=== PATIENT | female | born 1930 | race Caucasian/White ===

== ENCOUNTER 2016-12-12 12:08 | Inpatient (IN) | payer MEDICARE, OTHER ==
--- NOTE | ~2016-12-12 | OP ---
Record Of Operation [facility] [address] [place]. [address] NAME: KO PRICE : 30 STATUS : ADM IN PAT#: [id number] AGE: 85 ADM/REG DATE : 12/12/16 MR#: [id number] REPORT SERV DATE: 12/12/16 DICTATED BY: Shari GAMBINO DATE: 12/12/16 REPORT STATUS : Draft TRANSCRIBED BY: MODL DATE: 12/12/16 DATE OF PROCEDURE: 12/12/2016 PREOPERATIVE DIAGNOSES: Obstructing left proximal ureteral stone with mild acute kidney injury and probable urinary tract infection. POSTOPERATIVE DIAGNOSES: Obstructing left proximal ureteral stone with mild acute kidney injury and probable urinary tract infection. PROCEDURE: Cystoscopy, left retrograde pyelography, stone manipulation, double-J stent placement, placement of Apple catheter. SURGEON: Shari Gambino M.D. ANESTHESIA: General with LMA. COMPLICATIONS: None. DRAINS: 1. 7-[place] x 24 cm Contour double-J stent. 2. 18-[place] Apple catheter. BRIEF HISTORY: Ms. Price is an 85-year-old white female, who was doing well until earlier today when she began to develop nonspecific abdominal pain. She was evaluated in the ER and found to have a likely urinary tract infection with early sepsis and a 5-mm obstructing proximal left ureteral stone. I was asked to see her and arrange for urgent stent placement. I discussed with the patient who had been narcotized and her son. The plan would be to drain her kidney and treat her stone on a delayed basis. There were no unanswered questions. DESCRIPTION OF PROCEDURE: Under excellent general anesthesia, the patient was prepped and draped in a standard lithotomy position. Cystoscopy was performed with a 30-degree lens, revealed a mildly stenotic urethra. Inspection of the bladder revealed no tumors, stones, or foreign bodies and [id number] cystocele was noted. An 8-[place] cone-tipped catheter was used to perform a left retrograde pyelogram and it was noted that her left orifice was somewhat laterally deviated. This confirmed a filling defect in the proximal ureter. I inserted an angled glidewire through a 5-[place] open-ended catheter. Urine was obtained, but it was not grossly purulent. It appeared that the obstruction was more in the upper pole than the lower pole and the stone now appeared to be more in the collecting system. At any rate, I manipulated the wire back into the collecting system and into the upper pole. I took a 7-[place] x 24 cm Contour double-J stent and directed it up the ureter and into the kidney with attempts to make to make it coiled in the upper pole if that appeared more dilated in the lower pole. The patient tolerated the procedure well and I placed an 18-[place] Apple catheter per urethra. I planned to let the patient go back to the floor. Further medical management by the hospitalist in . We will check a KUB on her tomorrow and review it next week with plans for either ureteroscopy at Record Of Operation [address] [place]. [address] NAME: KO PRICE : 30 STATUS : ADM IN PAT#: [id number] AGE: 85 ADM/REG DATE : 12/12/16 MR#: [id number] REPORT SERV DATE: 12/12/16 DICTATED BY: Shari GAMBINO DATE: 12/12/16 REPORT STATUS : Draft TRANSCRIBED BY: MODKahlil DATE: 12/12/16 some point or ESWL. SHAZIA/REMBERTO Shari Gambino M.D. / [id number] CC: Anna Garcia M.D.
--- NOTE | ~2016-12-12 | HP ---
History And Physical [place] [address] [place]. [address] NAME: KO PRICE : 30 STATUS : ADM IN [facility]#: [id number] AGE: 85 ADM/REG DATE : 12/12/16 MR#: [id number] REPORT SERV DATE: 12/12/16 DICTATED BY: KEVON CAIN DATE: 12/12/16 REPORT STATUS : Draft TRANSCRIBED BY: REMBERTO DATE: 12/12/16 DATE OF ADMISSION: 12/12/2016 CHIEF COMPLAINT: Left-sided abdominal pain and CVA pain. HISTORY OF PRESENT ILLNESS: The patient is an 85-year-old white female, who lives independently. Her sons are present at bedside today. She woke up and had sudden onset of left CVA, left-sided abdominal pain. She was writhing in pain, brought to the hospital by her son. She has not had recent fever. Yesterday she was normal. She has not had a cough. She has not had any nausea, vomiting, or diarrhea until today, she was nauseated and had some retching but really only mucus came up. She has not noticed any dysuria. She has never had a kidney stone in the past. She has not had any chest pain. She does admit to get really short of breath. She does have a history of possible pulmonary fibrosis which was found on a chest x-ray. She has seen Dr. Rodriguez in the past and had some PFTs but she does not wear oxygen. PAST MEDICAL HISTORY: 1. Osteoarthritis. 2. Hypertension. 3. Hard of hearing. 4. Right breast cancer with mastectomy. 5. Colon polyps. 6. Hemorrhoids. 7. Diverticulosis. 8. Incomplete right bundle-branch block. 9. ITP. 10.Migraines. 11.Schatzki ring. 12.Probable pulmonary fibrosis. SOCIAL HISTORY: She is a nonsmoker, nondrinker. She quit smoking in the . She lives independently. ALLERGIES: DEMEROL. FAMILY HISTORY: Positive for CAD and Parkinson's in her father; a CVA and CHF in her mother; and her sister had breast cancer. SURGICAL HISTORY: 1. She has had a right total hip arthroplasty. 2. Hysterectomy. 3. Right mastectomy. REVIEW OF SYSTEMS: Full 10-point review of systems obtained. Pertinent positives already mentioned in the HPI. History And Physical [address] [place]. [address] NAME: KO PRICE : 30 STATUS : ADM IN PAT#: [id number] AGE: 85 ADM/REG DATE : 12/12/16 MR#: [id number] REPORT SERV DATE: 12/12/16 DICTATED BY: KEVON CAIN DATE: 12/12/16 REPORT STATUS : Draft TRANSCRIBED BY: REMBERTO DATE: 12/12/16 PHYSICAL EXAMINATION: VITAL SIGNS: Current vital signs are as follows: Blood pressure 142/70, pulse 95, sats 96% on 2 L, respiratory rate 21, and temperature was 98.2. GENERAL: A well-developed white female. She was really moving about in the bed and could not sit still. HEENT: Normocephalic, atraumatic. Throat is clear. NECK: Supple. HEART: Tachycardic but no murmurs, rubs, or gallops. LUNGS: She has some fine crackles at the bases. ABDOMEN: Soft, nondistended. EXTREMITIES: Warm and dry. SKIN: Intact without obvious rash or lesion. LABORATORY AND X-RAY: EKG shows sinus tach with a right bundle-branch block. CBC: H and H are 13.6 and 42, white count 14.7, and platelets are 282. Coags are pending. Chest x-ray shows this sort of patchy interstitial opacities in the bases which is consistent with her previous chest x-ray. Lactate is 3.4. CT of the abdomen and pelvis shows 5 mm proximal left ureteral stone with moderate left-sided hydro. Sodium is 140, potassium 3.3, chloride 104, CO2 of 29, BUN and creatinine 14 and 1.12. Glucose 184. LFTs are normal. Alkaline phosphatase 126, lipase is 82. Baseline creatinine is closer to 0.7. Procalcitonin is 0.42. Urinalysis shows moderate leukocyte esterase, positive nitrite, 10 whites, and 4 reds. BNP is 87. ASSESSMENT/PLAN: 1. Obstructive uropathy with left-sided obstructing ureteral stone with associated moderate hydro and probable UTI with ongoing SIRS/sepsis. We will admit to a tele bed as she currently has a good blood pressure. We will hydrate her aggressively. Provide IV cefepime. We will culture her blood and urine. Keep her n.p.o. I have contacted Urology and spoken with Dr. Hopkins, one of his associates who will see the patient in consultation today and potentially take her to the OR if needed. We will monitor her vital signs closely and place her on a tele bed. 2. Mild acute kidney injury again, hydrate. Treat underlying urinary tract infection, relieve urinary obstruction. 3. Mild hypoxemia, likely secondary to underlying lung disease or interstitial lung disease or pulmonary fibrosis which has been present for some time. I do not think she has pneumonia. She has no cough. No sputum and it does not correlate with her presentation today. The findings on chest x-ray appear to be old. We will provide O2 as needed. 4. History of hypertension. Holding antihypertensives. 5. Hard of hearing. 6. Osteoarthritis. 7. Deep venous thrombosis prophylaxis. We will start Lovenox tomorrow. 8. Disposition pending above. MEI/REMBERTO History And Physical [address] [address] NAME: KO PRICE : 30 STATUS : ADM IN [facility]#: [id number] AGE: 85 ADM/REG DATE : 12/12/16 MR#: [id number] REPORT SERV DATE: 12/12/16 DICTATED BY: KEOVN CAIN DATE: 12/12/16 REPORT STATUS : Draft TRANSCRIBED BY: REMBERTO DATE: 12/12/16 Kevon Cain M.D. / [id number] CC: Agustín Landeros M.D.
--- NOTE | ~2016-12-12 | DS ---
Discharge Summary [place] [address] [facility] [place]. [address] NAME: KO PRICE : 30 STATUS : DIS IN PAT#: [id number] AGE: 85 ADM/REG DATE : 12/12/16 MR#: [id number] REPORT SERV DATE: 12/16/16 DICTATED BY: KIMBERLI REZA DATE: 12/15/16 REPORT STATUS : Draft TRANSCRIBED BY: MODL DATE: 12/15/16 ADMISSION DATE: 12/12/2016 DISCHARGE DATE: 12/15/2016 CONSULTING PHYSICIAN: Dr. Ramirez for Urology. FINAL DIAGNOSES: 1. Status post stent placement for left ureteral stone and left hydronephrosis. 2. Urinary tract infection Klebsiella. 3. Escherichia coli bacteremia. 4. Interstitial lung disease. 5. Hypertension. 6. Hypokalemia, improved. 7. Diarrhea, improved. 8. History of right mastectomy for breast cancer. DIAGNOSTIC EXAMS: CAT scan of the abdomen showing 0.5 mm proximal left ureteral stone with moderate left-sided hydronephrosis. Right upper pole kidney stone measuring 5 mm and 4 mm. Right mid pole kidney stone measured 15 mm. Right lower pole kidney stone measured 3 mm. Large benign appearing right kidney cysts. No bowel obstruction or bowel wall inflammation. There are numerous colonic diverticula without acute diverticulitis. Chest x-ray increased bibasilar pattern suggests dependent edema, typical infection, could have . KUB, interval placement of left-sided double-J ureteral stent. Prior proximal left not clearly identified on this exam. Continued right- sided nephrolith. HOSPITAL COURSE: Please refer to the H and P done by Dr. Cain dated on 12/12/2016. Briefly, this is an 85-year-old female, who comes in for left-sided pain. The patient lives alone, woke up with sudden onset of left CVA and left lower quadrant abdominal pain, brought to the emergency room and was found to have hypokalemia, relative hypotension. Further workup revealed that the patient has left ureteral stone with left hydronephrosis. We got Urology involved and they placed a double-J stent and the patient felt better. She was started on broad-spectrum antibiotics and that was narrowed down to Duricef when we got cultures and sensitivity back. Meanwhile, the patient started having some diarrhea. We checked the stool and it seems to be firm rather than diarrhea so it was a just transient, and we can see the white count coming down. Our suspicion for C. diff is low. The patient expressed her wishes to go home. There was no vomiting, no abdominal pain anymore, and we got clearance from Urology for discharge, so we will be discharging the patient with the above diagnosis. She will be on the following medications; Norvasc 10 mg a day, tramadol 50 mg twice a day, potassium 10 mEq a day, Lasix 40 mg a day, losartan 100 mg a day, Excedrin p.r.n., and I will give her a prescription for Duricef 1 g p.o. b.i.d. for 11 more days. She said that she gets this difficulty in swallowing pills, so they can give it to her suspension. This has been explained to the patient in front of the son. TIME SPENT: 35 minutes. Discharge Summary [address] [address] NAME: KO PRICE : 30 STATUS : DIS IN PAT#: [id number] AGE: 85 ADM/REG DATE : 12/12/16 MR#: [id number] REPORT SERV DATE: 12/16/16 DICTATED BY: KIMBERLI REZA. DATE: 12/15/16 REPORT STATUS : Draft TRANSCRIBED BY: REMBERTO DATE: 12/15/16 ANNAMARIE/REMBERTO Kimberli Reza M.D. / [id number] CC: Anna Garcia M.D.
--- NOTE | ~2016-12-12 | CN ---
Consultation Report [facility] [address] [facility] [place]. [address] NAME: KO PRICE : 30 STATUS : ADM IN PAT#: [id number] AGE: 85 ADM/REG DATE : 12/12/16 MR#: [id number] REPORT SERV DATE: 12/12/16 DICTATED BY: Shari GAMBINO DATE: 12/12/16 REPORT STATUS : Draft TRANSCRIBED BY: MODKahlil DATE: 12/12/16 CONSULTATION DATE OF CONSULTATION: 12/12/2016 CHIEF COMPLAINT: Left proximal ureteral stone with possible UTI with or without sepsis. HISTORY OF PRESENT ILLNESS: Ms. Price is an 85-year-old, white female in her usual state of reasonably good health until earlier today when she developed abdominal pain, fairly nonspecific with weakness and fever. She was brought to the hospital by her family, ultimately found to have a 5 mm left proximal ureteral stone with obstruction. She has been [place] [address], mild acute kidney injury with a creatinine of 1.12. Her urine was positive for nitrites, red cells, and white cells. PAST MEDICAL HISTORY: 1. Hypertension. 2. Possible pulmonary fibrosis. 3. Urolithiasis. PAST SURGICAL HISTORY: Hysterectomy. HOME MEDICATIONS: Amlodipine 10 mg daily, daily aspirin, Lasix 40 mg daily, losartan 100 mg daily, potassium supplement, tramadol 50 daily. ALLERGIES: PROPOXYPHENE CAUSES A HEADACHE. FAMILY HISTORY: Negative for urologic disease. SOCIAL HISTORY: The patient lives at home alone. REVIEW OF SYSTEMS: Full 12-point review of systems negative except as noted above, gleaned from patient and family. PHYSICAL EXAMINATION: GENERAL: Uncomfortable appearing 85-year-old white female, somewhat confused. She appears to be uncomfortable, has been narcotized. Normocephalic, atraumatic, no respiratory distress. HEART: Regular rate rhythm. ABDOMEN: Protuberant, nontender. No CVA tenderness. : Normal external genitalia. Normal-appearing urethra. EXTREMITIES: No peripheral edema noted. PERTINENT LABORATORIES: Creatinine 1.12. White count [address], with a left shift. Urinalysis Consultation Report [facility] [address] [facility] [place]. [address] NAME: KO PRICE : 30 STATUS : ADM IN PAT#: [id number] AGE: 85 ADM/REG DATE : 12/12/16 MR#: [id number] REPORT SERV DATE: 12/12/16 DICTATED BY: Shari GAMBINO DATE: 12/12/16 REPORT STATUS : Draft TRANSCRIBED BY: REMBERTO DATE: 12/12/16 inflammatory as noted above. CT scan reviewed shows bilateral stones with an obstructing left proximal ureteral stone. IMPRESSION: 1. Obstructing left ureteral stone. 2. Probable urinary tract infection with or without early sepsis. PLAN: 1. The patient is to be admitted by the hospitalist which has already been taken care of. 2. I will arrange for urgent stent placement today. 3. As I explained to the patient and her family, we will plan delayed stone therapy several weeks down the road after her current situation is clear. 4. Urine was sent and blood cultures have been sent. SHAZIA/REMBERTO Shari Gambino M.D. / [id number] CC: Anna Garcia M.D.
[2016-12-12 10:47] LABS: BASOPHILS 0.1 %; BASOPHILS ABSOLUTE 0.01 10/3/uL (0.0-0.16); EOSINOPHILS 0.1 %; EOSINOPHILS ABSOLUTE 0.01 10/3/uL (0.0-0.53); ER CBC TAT 0 Hrs 05 Mins; HEMATOCRIT 42.3 % (36.0-48.0); HEMOGLOBIN 13.6 g/dL (12.0-16.0); IMMATURE GRANULOCYTES 0.3 %; IMMATURE GRANULOCYTES ABSOLUTE 0.04 10/3/uL (0.0-0.11); LYMPHOCYTES 3.5 %; LYMPHOCYTES ABSOLUTE 0.52 10/3/uL (0.67-4.30); MEAN CORPUS HGB CONC 32.2 g/dL (32.0-36.0); MEAN CORPUSCULAR HEMOGLOB 27.2 pg (26.0-34.0); MEAN CORPUSCULAR VOLUME 84.6 fL (80-100); MEAN PLATELET VOLUME 9.9 fL (9.2-13.0); MONOCYTES 1.2 %; MONOCYTES ABSOLUTE 0.17 10/3/uL (0.21-1.20); NEUTROPHILS 94.8 %; NEUTROPHILS ABSOLUTE 13.92 10/3/uL (2.02-8.40); PLATELET COUNT 282 10/3/uL (150-400); RBC DISTRIBUTION WIDTH 13.8 % (12.0-16.0); WHITE BLOOD CELLS 14.7 10/3/uL (4.5-10.5)
[2016-12-12 10:48] LABS: MANUAL DIFF NO %
[2016-12-12 11:05] LABS: A/G RATIO 0.9 (0.7-1.9); ALBUMIN 3.6 G/DL (3.5-5.0); BUN (BLOOD UREA NITROGEN) 14 MG/DL (6-23); CALCIUM, SERUM 9.1 MG/DL (8.5-10.4); CHLORIDE, SERUM 104 MMOL/L (96-112); CO2 (CARBON DIOXIDE) 29 MMOL/L (24-34); CREATININE 1.12 MG/DL (0.55-1.02); GFR AFRICAN AMERICAN 52 ML/MIN (>=60); GFR NON AFRICAN AMERICAN 45 ML/MIN (>=60); GLOBULIN 4.1 G/DL (2.5-4.1); POTASSIUM, SERUM 3.3 MMOL/L (3.5-5.3); SGOT(AST) 12 U/L (5-40); SGPT(ALT) 13 U/L (5-65); SODIUM, SERUM 140 MMOL/L (135-148); TOTAL BILIRUBIN 0.7 MG/DL (0-1.2); TOTAL PROTEIN 7.7 G/DL (6.0-8.5)
[2016-12-12 11:06] LABS: ALKALINE PHOSPHATASE 126 U/L (45-117); GLUCOSE, SERUM 184 MG/DL (60-99)
[2016-12-12 11:08] LABS: LACTATE 3.4 MMOL/L (0.3-2.4)
[2016-12-12 11:40] LABS: PROCALCITONIN 0.42 ng/mL (<0.5)
[2016-12-12 11:41] LABS: ASCORBIC ACID (UR NOT ORDER) NEG (NEG); BILIRUBIN, URINE NEGATIVE (NEG); ER URINALYSIS TAT 0 Hrs 11 Mins; KETONE, URINE NEGATIVE (NEG); LEUKOCYTE ESTERASE(NOT OR MOD (NEG); NITRITE (URINE) POS (NEG); WBC (NOT ORDERED) (RFLEX) 10 (0-5)
[~2016-12-12 12:08] MED LIST: B COMPLETE PO; COZAAR100 MG PO; KLOR-CON 1010 MEQ PO; L20 PO; NORV10 PO; PEP10 PO; ULTRAM50 PO; VIT B; VITAMIN D31000 UNIT PO
[2016-12-12] MEDS ORDERED: L40 PO (12:48)
[2016-12-12] MEDS ORDERED: ULTRAM50 PO (12:48)
[2016-12-12] MEDS ORDERED: COZAAR100 MG PO (12:48)
[2016-12-12] MEDS ORDERED: KLOR-CON 1010 MEQ PO (12:48)
[2016-12-12] MEDS ORDERED: NORV10 PO (12:48)
[2016-12-12] MEDS ORDERED: EXCEDRIN EXTRA1 EACH PO (12:49)
[2016-12-12 19:29] LABS: INTERNATIONAL NORMAL RATI 1.2 UNITS (-); PARTIAL THROMBO TIME 28.7 SEC (22.5-37.2); PROTIME (NOT ORD) 14.9 SEC (12.0-14.5)
[2016-12-13 06:34] LABS: BUN (BLOOD UREA NITROGEN) 20 MG/DL (6-23); CALCIUM, SERUM 7.9 MG/DL (8.5-10.4); CHLORIDE, SERUM 110 MMOL/L (96-112); CO2 (CARBON DIOXIDE) 28 MMOL/L (24-34); CREATININE 1.07 MG/DL (0.55-1.02); GFR AFRICAN AMERICAN 55 ML/MIN (>=60); GFR NON AFRICAN AMERICAN 47 ML/MIN (>=60); GLUCOSE, SERUM 158 MG/DL (60-99); POTASSIUM, SERUM 3.7 MMOL/L (3.5-5.3); SODIUM, SERUM 144 MMOL/L (135-148)
[2016-12-13 11:47] LABS: MEAN CORPUSCULAR HEMOGLOB 27.1 pg (26.0-34.0); PLATELET COUNT 222 10/3/uL (150-400)
[2016-12-13 11:54] LABS: HEMATOCRIT 34.1 % (36.0-48.0); HEMOGLOBIN 10.8 g/dL (12.0-16.0); MEAN CORPUS HGB CONC 31.7 g/dL (32.0-36.0); MEAN CORPUSCULAR VOLUME 85.7 fL (80-100); MEAN PLATELET VOLUME 10.7 fL (9.2-13.0); RBC DISTRIBUTION WIDTH 14.8 % (12.0-16.0); RED CELL COUNT 3.98 10/6/uL (4.0-5.6); WHITE BLOOD CELLS 24.9 10/3/uL (4.5-10.5)
[2016-12-13 11:55] LABS: MANUAL DIFF YES %
[2016-12-13 13:34] LABS: BAND NEUTROPHILS 29 %; IMMATURE GRANS ABSOLUTE (CALC) 0.25 10/3/uL (0.0-0.11); LYMPHOCYTES 7 %; LYMPHOCYTES ABSOLUTE (CALC) 1.74 10/3/uL (0.67-4.30); METAMYELOCYTES 1 %; MONOCYTES 6 %; MONOCYTES ABSOLUTE (CALC) 1.49 10/3/uL (0.21-1.20); NEUTROPHILS ABSOLUTE (CALC) 21.41 10/3/uL (2.02-8.40); SEGMENTED NEUTROPHIL (0) 57 %; TOTAL NUCLEATED CELLS 100
[2016-12-13 13:35] LABS: PLATELET ESTIMATE ADQ (ADEQUATE); RBC MORPHOLOGY NORM (NORMAL); TOXIC GRANULATION 1+
[2016-12-14 06:15] LABS: BASOPHILS 0.1 %; BASOPHILS ABSOLUTE 0.02 10/3/uL (0.0-0.16); EOSINOPHILS 0.5 %; EOSINOPHILS ABSOLUTE 0.11 10/3/uL (0.0-0.53); HEMATOCRIT 35.3 % (36.0-48.0); HEMOGLOBIN 11.1 g/dL (12.0-16.0); IMMATURE GRANULOCYTES 0.5 %; LYMPHOCYTES 6.5 %; LYMPHOCYTES ABSOLUTE 1.41 10/3/uL (0.67-4.30); MEAN CORPUS HGB CONC 31.4 g/dL (32.0-36.0); MEAN CORPUSCULAR VOLUME 85.9 fL (80-100); MEAN PLATELET VOLUME 10.7 fL (9.2-13.0); MONOCYTES 4.4 %; MONOCYTES ABSOLUTE 0.96 10/3/uL (0.21-1.20); NEUTROPHILS ABSOLUTE 19.15 10/3/uL (2.02-8.40); PLATELET COUNT 214 10/3/uL (150-400); RBC DISTRIBUTION WIDTH 14.8 % (12.0-16.0); RED CELL COUNT 4.11 10/6/uL (4.0-5.6); WHITE BLOOD CELLS 21.8 10/3/uL (4.5-10.5)
[2016-12-14 06:17] LABS: MANUAL DIFF NO %
[2016-12-14 06:25] LABS: CALCIUM, SERUM 8.7 MG/DL (8.5-10.4); CHLORIDE, SERUM 112 MMOL/L (96-112); CO2 (CARBON DIOXIDE) 24 MMOL/L (24-34); CREATININE 0.75 MG/DL (0.55-1.02); GFR AFRICAN AMERICAN 84 ML/MIN (>=60); GFR NON AFRICAN AMERICAN 73 ML/MIN (>=60); GLUCOSE, SERUM 171 MG/DL (60-99); POTASSIUM, SERUM 3.9 MMOL/L (3.5-5.3); SODIUM, SERUM 142 MMOL/L (135-148)
[2016-12-14 06:29] LABS: BUN (BLOOD UREA NITROGEN) 12 MG/DL (6-23)
[2016-12-15 06:41] LABS: BASOPHILS 0.2 %; BASOPHILS ABSOLUTE 0.03 10/3/uL (0.0-0.16); EOSINOPHILS 1.2 %; EOSINOPHILS ABSOLUTE 0.18 10/3/uL (0.0-0.53); HEMOGLOBIN 11.2 g/dL (12.0-16.0); IMMATURE GRANULOCYTES 0.3 %; IMMATURE GRANULOCYTES ABSOLUTE 0.04 10/3/uL (0.0-0.11); LYMPHOCYTES 7.9 %; LYMPHOCYTES ABSOLUTE 1.15 10/3/uL (0.67-4.30); MEAN CORPUSCULAR HEMOGLOB 27.2 pg (26.0-34.0); MEAN PLATELET VOLUME 10.3 fL (9.2-13.0); MONOCYTES 5.5 %; MONOCYTES ABSOLUTE 0.79 10/3/uL (0.21-1.20); NEUTROPHILS 84.9 %; PLATELET COUNT 228 10/3/uL (150-400); RBC DISTRIBUTION WIDTH 14.3 % (12.0-16.0); RED CELL COUNT 4.12 10/6/uL (4.0-5.6); WHITE BLOOD CELLS 14.5 10/3/uL (4.5-10.5)
[2016-12-15 06:46] LABS: MANUAL DIFF NO %
[2016-12-15] MEDS ORDERED: DURICEF PO (12:08)
== END 2016-12-15 12:53 | disposition home or self-care (01) | DRG 872 ==
LOC: ER 12:08 → 2SO 14:11
PROVIDERS: Emergency Medicine; Internal Medicine
PROC: 0T778DZ Dilation of Left Ureter with Intraluminal Device, Via Natural or Artificial Opening Endoscopic (ICD-10-PCS; 2016-12-12)
PROC: 0T9B80Z Drainage of Bladder with Drainage Device, Via Natural or Artificial Opening Endoscopic (ICD-10-PCS; 2016-12-12)
PROC: BT1F1ZZ Fluoroscopy of Left Kidney, Ureter and Bladder using Low Osmolar Contrast (ICD-10-PCS; principal; 2016-12-12 14:15)
DX: A41.9 Sepsis, unspecified organism (principal); N17.9 Acute kidney failure, unspecified; J84.9 Interstitial pulmonary disease, unspecified; D69.3 Immune thrombocytopenic purpura; K22.2 Esophageal obstruction; N39.0 Urinary tract infection, site not specified; N13.2 Hydronephrosis with renal and ureteral calculous obstruction; J84.10 Pulmonary fibrosis, unspecified; M19.90 Unspecified osteoarthritis, unspecified site; I10 Essential (primary) hypertension; K57.30 Diverticulosis of large intestine without perforation or abscess without bleeding; I45.10 Unspecified right bundle-branch block; E87.6 Hypokalemia; R09.02 Hypoxemia; Z88.8 Allergy status to other drugs, medicaments and biological substances; Z85.3 Personal history of malignant neoplasm of breast; Z82.49 Family history of ischemic heart disease and other diseases of the circulatory system; Z86.010 Personal history of colon polyps; Z98.890 Other specified postprocedural states; Z87.891 Personal history of nicotine dependence; Z68.32 Body mass index [BMI] 32.0-32.9, adult
CPT/HCPCS: 71010; 74000; 74176; 74420; 80048; 80053; 81001; 82962; 83605; 83690; 83880; 84145; 85025; 85610; 85730; 87040; 87045; 87046; 87046-59; 87077; 87086; 87150; 87186; 87493; 87493-59; 87899; 87899-59; 89055; 93005; 96374; 99285; A9270-GY; C1758; C1769; C1874; J0692; J1200; J2370; J2405; J2550; J3010; Q9967

== ENCOUNTER 2016-12-26 11:05 | Day surgery (SDC) | payer MEDICARE, OTHER ==
--- NOTE | ~2016-12-26 | OP ---
Record Of [place] [address] [facility] [place]. [address] NAME: ROSE PRICE : 30 STATUS : REG [facility]#: [id number] AGE: 86 ADM/REG DATE : 12/26/16 MR#: [id number] REPORT SERV DATE: 12/26/16 DICTATED BY: Shari GAMBINO DATE: 12/26/16 REPORT STATUS : Draft TRANSCRIBED BY: REMBERTO DATE: 12/26/16 DATE OF PROCEDURE: 12/26/2016 PREOPERATIVE DIAGNOSIS: Left proximal ureteral stone. POSTOPERATIVE DIAGNOSIS: Left renal stone. PROCEDURE: Left ESWL. SURGEON: Shari Gambino M.D. ANESTHESIA: General with LMA. COMPLICATIONS: None. DRAINS: None. BRIEF HISTORY: Ms. Price is an 86-year-old white female, who presented with sepsis and an obstructing stone. She had a stent placement on 12/12/2016, and has been given a course of sensitivity directed antibiotics. Her stone has looked like it was in the area of the proximal ureter or renal pelvis about 7 mm in size, and she is here for ESWL. The risks of bleeding, infection, anesthesia, injury to adjacent organs, need for retreatment, ureteroscopy etc. were all discussed. There were no unanswered questions. DESCRIPTION OF PROCEDURE: Under excellent general anesthesia, the patient was prepped and draped in standard supine position on the Dornier lithotripsy unit. The stone was localized at F2, and a total of 2500 shocks at power level up to 5.0 were delivered to the stone. The patient tolerated the procedure well and will be discharged as an outpatient with the following instructions. DISCHARGE INSTRUCTIONS: 1. Home today. 2. Call for severe pain, excessive bleeding, or fever. Otherwise, follow up in my office in one to two weeks with a KUB. Consider cysto stent removal there or in the operative operating room as appropriate. SHAZIA/REMBERTO Shari Gambino M.D. / [id number] CC: Record [facility] [address] [address] NAME: ROSE PRICE : 30 STATUS : REG [facility]#: [id number] AGE: 86 ADM/REG DATE : 12/26/16 MR#: [id number] REPORT SERV DATE: 12/26/16 DICTATED BY: Shari GAMBINO DATE: 12/26/16 REPORT STATUS : Draft TRANSCRIBED BY: MODL DATE: 12/26/16 Anna Lizama M.D.
[~2016-12-26 11:05] MED LIST changes: +DURICEF PO; +EXCEDRIN EXTRA1 EACH PO; +L40 PO
== END 2016-12-26 18:55 | disposition home or self-care (01) ==
LOC: SDC 11:05
PROC: 0TF4XZZ Fragmentation in Left Kidney Pelvis, External Approach (ICD-10-PCS; principal; 2016-12-26 13:00)
DX: N20.0 Calculus of kidney (principal); I10 Essential (primary) hypertension; M19.90 Unspecified osteoarthritis, unspecified site; J84.10 Pulmonary fibrosis, unspecified; Z90.710 Acquired absence of both cervix and uterus; Z82.49 Family history of ischemic heart disease and other diseases of the circulatory system; Z82.3 Family history of stroke; Z88.5 Allergy status to narcotic agent; Z79.899 Other long term (current) drug therapy; Z96.641 Presence of right artificial hip joint; Z98.890 Other specified postprocedural states; Z85.3 Personal history of malignant neoplasm of breast
CPT/HCPCS: 50590; 74000; 81001; 82962; J3010